=== PATIENT | female | born 1965 | race Caucasian/White ===

== ENCOUNTER 2017-07-16 08:15 | Emergency (ER) | payer SELFPAY, OTHER ==
--- NOTE | 2017-07-16 08:57 | RAD ---
RIGHT FOOT 3 VIEWS: Date: 07/16/17 HISTORY: Right foot pain. FINDINGS: Tarsals appear unremarkable. Metatarsals and phalanges are intact. Minimal degenerative change at the first MTP joint. Cerclage wire is seen within the proximal phalanx of the great toe, consistent with prior procedure. No acute osseous abnormality identified. IMPRESSION: Unremarkable exam. POS: [facility]
== END 2017-07-16 09:24 | disposition home or self-care (01) ==
LOC: ERS 08:15
DX: M79.671 Pain in right foot (principal); I10 Essential (primary) hypertension; M06.9 Rheumatoid arthritis, unspecified; J45.909 Unspecified asthma, uncomplicated; F41.9 Anxiety disorder, unspecified; F32.9 Major depressive disorder, single episode, unspecified